=== PATIENT | female | born 1960 | race African-American/Black ===

== ENCOUNTER → 2022-01-13 | Outpatient (CLI) | payer BC | LOC: M WUC 10:14 | PROVIDERS: ATTEND Nurse Practitioner Family | DX: M25.561 Pain in right knee (principal); M25.511 Pain in right shoulder; M25.572 Pain in left ankle and joints of left foot; M25.532 Pain in left wrist ==

== ENCOUNTER → 2022-01-31 | Outpatient (REF) | payer BC, MEDICAID | LOC: M SFHCDERM 16:45 | PROVIDERS: ATTEND Nurse Practitioner Family | DX: D17.79 Benign lipomatous neoplasm of other sites (principal) ==

== ENCOUNTER → 2022-03-12 | Outpatient (CLI) | payer BC, MEDICAID ==
[2022-03-12 13:42] LABS: ALBUMIN 3.4 GM/DL (3.2-5.2); ALT/SGPT 22 U/L (12-78); BILIRUBIN,TOTAL 0.4 MG/DL (0.2-1.0); BLOOD UREA NITROGEN 11 MG/DL (7-18); CALCIUM LEVEL 9.5 MG/DL (8.8-10.2); CARBON DIOXIDE LEVEL 30 MEQ/L (21-32); CHLORIDE LEVEL 105 MEQ/L (98-107); CHOLESTEROL LEVEL 220 MG/DL (<200); CHOLESTEROL RISK RATIO 2.682 (<5); FREE T4 0.99 NG/DL (0.76-1.46); GLOMERULAR FILTRATION RATE > 60.0 (>45); GLUCOSE, FASTING 88 MG/DL (70-100); HDL CHOLESTEROL 82 MG/DL (>40); LDL CHOLESTEROL 103 MG/DL (<100); MAGNESIUM LEVEL 2.3 MG/DL (1.8-2.4); NON-HDL-C 138 MG/DL; PHOSPHORUS LEVEL 4.3 MG/DL (2.5-4.9); POTASSIUM SERUM 4.5 MEQ/L (3.5-5.1); SODIUM LEVEL 139 MEQ/L (136-145); TOTAL PROTEIN 7.3 GM/DL (6.4-8.2); TRIGLYCERIDES LEVEL 176 MG/DL (<150)
[2022-03-12 13:53] LABS: HEMOGLOBIN A1c 5.6 %
[2022-03-12 14:29] LABS: TOTAL 25(OH) VITAMIN D 23.3 NG/ML (30.0-100.0)
[2022-03-12 15:09] LABS: HEPATITIS C VIRUS ABY INDEX < 0.0 INDEX (<0.8)
[2022-03-12 15:10] LABS: HIV 1&2 SCREEN CENTAUR NEGATIVE (NEGATIVE)
== END ==
LOC: M LAB 12:04
PROVIDERS: ATTEND Nurse Practitioner Family
DX: Z11.9 Encounter for screening for infectious and parasitic diseases, unspecified (principal)

== ENCOUNTER → 2022-04-08 | Outpatient (CLI) | payer BC, MEDICAID | LOC: M WHC 11:49 | PROVIDERS: ATTEND Nurse Practitioner Family | DX: N63.10 Unspecified lump in the right breast, unspecified quadrant (principal) ==

== ENCOUNTER → 2022-05-09 | Outpatient (CLI) | payer BC, MEDICAID ==
[2022-05-09 12:39] LABS: FREE T4 1.28 NG/DL (0.89-1.76)
[2022-05-09 12:40] LABS: THYROID STIMULATING HORMONE 1.208 uIU/ML (0.55-4.78); THYROXINE (T4) 9.7 UG/DL (4.5-10.9)
== END ==
LOC: M LAB 11:41
PROVIDERS: ATTEND Ophthalmology
DX: H16.223 Keratoconjunctivitis sicca, not specified as Sjogren's, bilateral (principal)

== ENCOUNTER → 2022-05-19 | Outpatient (CLI) | payer BC, MEDICAID | LOC: M RAD 13:49 | PROVIDERS: ATTEND Nurse Practitioner Family | DX: M79.641 Pain in right hand (principal); M79.651 Pain in right thigh; M79.652 Pain in left thigh ==

== ENCOUNTER → 2022-05-21 | Outpatient (CLI) | payer BC, MEDICAID | LOC: M SOG 08:07 | PROVIDERS: ATTEND Orthopaedic Surgery | DX: M54.2 Cervicalgia (principal); M79.641 Pain in right hand; M79.642 Pain in left hand ==

== ENCOUNTER 2022-11-10 08:06 | Day surgery (SDC) | payer BC, MEDICAID ==
[~2022-11-10] VITALS: Ht 165.1 cm; Wt 84.7 kg
[~2022-11-10 08:06] MED LIST: MAGN400C PO; VITAD400CA PO; ceFAZolin SOD 2 GM in IV 1 EA IV ONE; oxyCODONE 5MG TAB PO ONE
[2022-11-10] MEDS ORDERED: LR 1,000 ML IV SCH (08:45)
[2022-11-10] MEDS ORDERED: BUPIVACAINE/EPIN 0.5% 30ML VIAL As Ordered ONE (09:54)
[2022-11-10] MEDS ORDERED: METOCLOPRAMIDE INJ 10MG/2ML VIAL As Ordered ONE (10:18)
[2022-11-10] MEDS ORDERED: fentaNYL 100 MCG/2 ML INJECTION As Ordered ONE ×2 (10:18→10:30)
[2022-11-10] MEDS ORDERED: ONDANSETRON 4MG 2ML VIAL As Ordered ONE (10:18)
[2022-11-10] MEDS ORDERED: MIDAZOLAM INJ 2MG/2ML VIAL As Ordered ONE (10:18)
[2022-11-10] MEDS ORDERED: propofoL 200 MG/20 ML VIAL As Ordered ONE ×2 (10:18→10:21)
[2022-11-10] MEDS ORDERED: KETOROLAC 60MG 2ML VIAL As Ordered ONE (10:18)
[2022-11-10] MEDS ORDERED: ACETAMINOPHEN 1000MG 100ML IV BAG As Ordered ONE (10:18)
[2022-11-10] MEDS ORDERED: LIDOCAINE 2% 100MG/5ML SDV (FOR ANES.) As Ordered ONE (10:18)
[2022-11-10] MEDS ORDERED: HYDROMORPHONE HCL 0.5 MG/ 0.5 ML SYRINGE IV PRN (11:55)
[2022-11-10] MEDS ORDERED: fentaNYL 100 MCG/2 ML INJECTION IV PRN (11:55)
[2022-11-10] MEDS ORDERED: oxyCODONE 5MG TAB PO PRN (11:55)
[2022-11-10] MEDS ORDERED: ONDANSETRON 4MG 2ML VIAL IV PRN (11:55)
[2022-11-10] MEDS ORDERED: TRAM50TA2 PO (11:55)
[2022-11-10] MEDS ORDERED: IBUP-351 PO (11:56)
[2022-11-10 13:00] VITALS: BP 121/65; TEMP 97.5; O2SAT 98
== END 2022-11-10 13:09 | disposition home or self-care (01) ==
LOC: M SDC 08:06
PROVIDERS: ATTEND Orthopaedic Surgery
DX: G56.03 Carpal tunnel syndrome, bilateral upper limbs (principal); Z53.33 Arthroscopic surgical procedure converted to open procedure
CPT/HCPCS: 64721; J0131; J0690; J1100; J1885; J2250; J2405; J2765; J3010; S0020